=== PATIENT | female | born 1940 | race Two or more races ===

== ENCOUNTER 2016-06-20 10:04 | Emergency (ER) | payer MEDICARE, MEDICAID ==
[~2016-06-20] VITALS: Ht 157.5 cm; Wt 73.0 kg
[~2016-06-20 10:04] MED LIST: BENAZEPRIL PO; CHOL20004 PO; FOLI-43 PO; GLIPIZIDE PO; MEMA10TA11 PO; METFORMIN PO; OMEPRAZOLE PO; PANT40TA4 PO; PROP10TA10 PO; SIME80TA15 PO
[2016-06-20 12:48] LABS: BASOPHILS % 0.3 % (0.0-2.0); EOSINOPHILS % 0.2 % (0.0-5.0); HEMATOCRIT. 27.9 % (36.0-48.0); HEMOGLOBIN. 9.4 g/dL (12.0-16.0); LYMPHOCYTES % 24.5 % (20.0-50.0); MEAN CORPUSCULAR HEMOGLOBIN 32.5 pg (28.0-32.0); MEAN CORPUSCULAR HGB CONC 33.9 g/dL (31.0-37.0); MONOCYTES % 5.7 % (2.0-8.0); NEUTROPHILS % 69.3 % (40.0-76.0); PLATELET 125 x1000/uL (130-400); RED CELL DISTRIBUTION WIDTH 14.5 % (11.6-14.6); WHITE BLOOD COUNT 6.2 x1000/uL (4.5-11.0)
[2016-06-20 12:59] LABS: CLARITY URINE CLEAR (CLEAR); COLOR URINE YELLOW (YELLOW); GLUCOSE URINE NEGATIVE (NEGATIVE); KETONES URINE NEGATIVE (NEGATIVE); LEUKOCYTE ESTERASE URINE NEGATIVE (NEGATIVE); NITRITE URINE NEGATIVE (NEGATIVE); OCCULT BLOOD URINE TRACE (NEGATIVE); PH URINE 5.5 (4.5-8.0); PROTEIN URINE NEGATIVE (NEGATIVE); SPECIFIC GRAVITY URINE 1.009 (1.005-1.030); UROBILINOGEN URINE 0.2 E.U./dL (0.2-1.0)
[2016-06-20 12:59] LABS: ALANINE AMINOTRANSFERASE 31 IU/L (13-61); ALBUMIN 2.6 g/dL (3.4-5.0); ANION GAP 13; CALCIUM 8.8 mg/dL (8.5-10.1); CARBON DIOXIDE 23 mEq/L (21-32); CHLORIDE 114 mEq/L (98-107); ETHANOL BLOOD < 10 mg/dL; INDEX HEMOLYSI 1 (1-3); INDEX ICTERIC 1 (1-4); INDEX LIPEMIC 1 (1-3); UREA NITROGEN BLOOD 15 mg/dL (7-21)
[2016-06-20 13:02] LABS: eGFR > 60 mL/min (>60)
[2016-06-20 13:06] LABS: MUCUS URINE 2+ /lpf (< = 2+); SQUAMOUS EPITHELIAL CELL URINE 1+ /lpf (RARE/1+)
[2016-06-20 13:07] LABS: BACTERIA URINE 2+
[2016-06-20 13:22] LABS: *AMPHETAMINES SCREEN URINE NEGATIVE (NEGATIVE); *BARBITURATES SCREEN URINE NEGATIVE (NEGATIVE); *BENZODIAZEPINES SCREEN URINE NEGATIVE (NEGATIVE); *COCAINE SCREEN URINE NEGATIVE (NEGATIVE); CANNABINOID URINE SCREEN NEGATIVE (NEGATIVE); ECSTASY MDMA SCREEN URINE NEGATIVE (NEGATIVE); METHADONE URINE SCREEN NEGATIVE (NEGATIVE); OPIATES URINE SCREEN NEGATIVE (NEGATIVE); PHENCYCLIDINE URINE SCREEN NEGATIVE (NEGATIVE)
[2016-06-20 17:05] VITALS: BP 143/70
== END 2016-06-20 17:37 | disposition home or self-care (01) ==
LOC: ER 10:22
DX: E11.649 Type 2 diabetes mellitus with hypoglycemia without coma (principal); E86.0 Dehydration; E87.0 Hyperosmolality and hypernatremia; I10 Essential (primary) hypertension; D69.6 Thrombocytopenia, unspecified; D64.9 Anemia, unspecified; Z91.14 Patient's other noncompliance with medication regimen; Z79.84 Long term (current) use of oral hypoglycemic drugs; E78.00 Pure hypercholesterolemia, unspecified; Z87.440 Personal history of urinary (tract) infections
CPT/HCPCS: 36415; 70450; 80053; 80305; 81001; 82962; 83036; 85025; 93005; 99285; G0482

== ENCOUNTER 2017-06-07 18:20 | Emergency (ER) | payer OTHER, MEDICAID ==
[~2017-06-07] VITALS: Ht 154.9 cm; Wt 50.0 kg
[~2017-06-07 18:20] MED LIST changes: -MEMA10TA11 PO; +MEMA10TA2 PO
[2017-06-07] MEDS ORDERED: KETOROLAC 30MG/ML VIAL IV STA (19:17)
[2017-06-07] MEDS ORDERED: MORPHINE SULFATE 4 MG/ML CPJ (NOT FOR IM USE) IV STA (19:17)
[2017-06-07] MEDS ORDERED: ONDANSETRON HCL 4MG/2ML VIAL IV ONE (19:30)
[2017-06-07 19:50] LABS: BASOPHILS % 0.3 % (0.0-2.0); EOSINOPHILS % 0.9 % (0.0-5.0); HEMATOCRIT. 35.5 % (36.0-48.0); HEMOGLOBIN. 12.3 g/dL (12.0-16.0); LYMPHOCYTES % 12.1 % (20.0-50.0); MEAN CORPUSCULAR HEMOGLOBIN 34.1 pg (28.0-32.0); MEAN CORPUSCULAR VOLUME 98.4 fL (81.0-99.0); MEAN PLATELET VOLUME 10.3 fl (7.4-10.4); MONOCYTES % 6.4 % (2.0-8.0); NEUTROPHILS % 80.3 % (40.0-76.0); PLATELET 121 x1000/uL (130-400); RED CELL DISTRIBUTION WIDTH 14.7 % (11.6-14.6)
[2017-06-07 19:54] LABS: CHLORIDE 110 mEq/L (98-107)
[2017-06-07 19:55] LABS: INR 1.1; PROTHROMBIN TIME 10.9 sec (9.4-11.6)
[2017-06-07 22:27] VITALS: BP 134/88
== END 2017-06-07 22:29 | disposition home or self-care (01) ==
LOC: ER 18:44
DX: R10.13 Epigastric pain (principal); R19.7 Diarrhea, unspecified; R53.1 Weakness; I10 Essential (primary) hypertension; E78.00 Pure hypercholesterolemia, unspecified; Z79.84 Long term (current) use of oral hypoglycemic drugs
CPT/HCPCS: 36415; 74176; 80053; 83690; 85025; 85610; 96374; 96375; 99285; J1885; J2405

== ENCOUNTER 2017-06-23 22:33 | Emergency (ER) | payer OTHER, MEDICAID ==
[~2017-06-23] VITALS: Ht 162.6 cm; Wt 75.0 kg
[2017-06-24] MEDS ORDERED: DIAZEPAM 5 MG/ML 2ML CPJ IV ONE (00:15)
[2017-06-24] MEDS ORDERED: ASPIRIN 325MG EC TABLET PO ONE (00:15)
[2017-06-24] MEDS ORDERED: LIDOCAINE 5% PATCH TOP SCH (00:15)
[2017-06-24] MEDS ORDERED: KETOROLAC 30MG/ML VIAL IV ONE (00:15)
[2017-06-24 00:28] LABS: BASOPHILS % 0.9 % (0.0-2.0); EOSINOPHILS % 2.3 % (0.0-5.0); HEMATOCRIT. 32.6 % (36.0-48.0); HEMOGLOBIN. 11.4 g/dL (12.0-16.0); LYMPHOCYTES % 17.4 % (20.0-50.0); MEAN CORPUSCULAR HEMOGLOBIN 34.2 pg (28.0-32.0); MEAN CORPUSCULAR VOLUME 98.3 fL (81.0-99.0); MEAN PLATELET VOLUME 9.7 fl (7.4-10.4); MONOCYTES % 8.6 % (2.0-8.0); NEUTROPHILS % 70.8 % (40.0-76.0); PLATELET 149 x1000/uL (130-400); RED BLOOD CELL COUNT 3.32 mill/uL (4.2-5.4); RED CELL DISTRIBUTION WIDTH 14.3 % (11.6-14.6)
[2017-06-24 00:33] LABS: CHLORIDE 110 mEq/L (98-107)
[2017-06-24 00:35] LABS: INR 1.1; PARTIAL THROMBOPLASTIN TIME 26.8 sec (23.4-31.0)
[2017-06-24] MEDS ORDERED: DIAZEPAM 5 MG TABLET PO ONE (00:45)
[2017-06-24 05:20] VITALS: BP 165/77
== END 2017-06-24 05:20 | disposition home or self-care (01) ==
LOC: ER 22:33 → CANBEDREQ 06-24 03:39 → ER 06-24 05:20
DX: M62.838 Other muscle spasm (principal); K74.60 Unspecified cirrhosis of liver; E11.9 Type 2 diabetes mellitus without complications; Z79.84 Long term (current) use of oral hypoglycemic drugs
CPT/HCPCS: 36415; 71045; 80053; 83880; 84484; 85025; 85610; 85730; 93005; 96374; 99285; J1885

== ENCOUNTER 2017-08-24 08:26 | Emergency (ER) | payer OTHER ==
[~2017-08-24] VITALS: Ht 167.6 cm; Wt 77.0 kg
[2017-08-24] MEDS ORDERED: KETOROLAC 30MG/ML VIAL IM ONE (09:30)
[2017-08-24] MEDS ORDERED: LIDOCAINE HCL 1% 20ML VIAL (Pyxis) INJ INFIL ONE (09:30)
[2017-08-24] MEDS ORDERED: LIDOCAINE HCL/PF 1% 10 MG/ML 5ML VIAL IJ NR (10:16)
[2017-08-24 12:35] VITALS: BP 160/72
== END 2017-08-24 12:48 | disposition home or self-care (01) ==
LOC: ER 09:14
DX: S16.1XXA Strain of muscle, fascia and tendon at neck level, initial encounter (principal); R19.7 Diarrhea, unspecified; I10 Essential (primary) hypertension; E11.9 Type 2 diabetes mellitus without complications; R94.31 Abnormal electrocardiogram [ECG] [EKG]; Z79.84 Long term (current) use of oral hypoglycemic drugs; X58.XXXA Exposure to other specified factors, initial encounter; Y92.018 Other place in single-family (private) house as the place of occurrence of the external cause
CPT/HCPCS: 82962; 93005; 96372; 99283; J1885; J3490

== ENCOUNTER 2018-08-01 11:20 | Emergency (ER) | payer OTHER, MEDICAID ==
[~2018-08-01] VITALS: Ht 160 cm; Wt 82.0 kg
[2018-08-01 12:41] LABS: BASOPHILS % 0.5 % (0.0-2.0); EOSINOPHILS % 0.5 % (0.0-5.0); HEMATOCRIT. 34.4 % (36.0-48.0); HEMOGLOBIN. 11.8 g/dL (12.0-16.0); LYMPHOCYTES % 16.5 % (20.0-50.0); MEAN CORPUSCULAR HEMOGLOBIN 35.5 pg (28.0-32.0); MEAN CORPUSCULAR VOLUME 103.6 fL (81.0-99.0); MEAN PLATELET VOLUME 9.8 fl (7.4-10.4); NEUTROPHILS % 75.5 % (40.0-76.0); PLATELET 144 x1000/uL (130-400); RED BLOOD CELL COUNT 3.32 mill/uL (4.2-5.4)
[2018-08-01 12:55] LABS: INR 1.1; PROTHROMBIN TIME 11.5 sec (9.6-11.0)
[2018-08-01 12:56] LABS: CHLORIDE 112 mEq/L (98-107)
[2018-08-01 13:47] LABS: CLARITY URINE CLOUDY (CLEAR); COLOR URINE DARK YELLOW (YELLOW); KETONES URINE TRACE (NEGATIVE); LEUKOCYTE ESTERASE URINE 1+ (NEGATIVE); NITRITE URINE POSITIVE (NEGATIVE); OCCULT BLOOD URINE 3+ (NEGATIVE); PROTEIN URINE 1+ (NEGATIVE); SPECIFIC GRAVITY URINE 1.021 (1.005-1.030)
[2018-08-01] MEDS ORDERED: FUROSEMIDE 40MG/4ML VIAL IVP ONE (16:15)
[2018-08-01] MEDS ORDERED: DEXTROSE 50% WATER 50ML SYRINGE IV PRN (17:15)
[2018-08-01 17:35] LABS: BG BASE EXCESS -3.9 mmol/L (-2.0-2.0); BG CARBOXYHEMOGLOBIN 0.1 % (0.5-1.5); BG DEOXYHEMOGLOBIN 4.8 % (0.0-5.0); BG FRACTION INSPIRED OXYGEN 21; BG HCO3 ACT 18.9 mmol/L (22.0-26.0); BG METHEMOGLOBIN 0.2 % (0.0-1.5); BG OXYGEN SATURATION 95.2 % (92.0-98.5); BG OXYHEMOGLOBIN 94.9 % (94.0-97.0); BG PH 7.448 (7.350-7.450); BG PO2 77.1 mmHg (75.0-100.0); BG SAMPLE SITE RIGHT BRACHIAL; BG TOTAL HEMOGLOBIN 12.1 g/dL (12.0-18.0); BG VENT MODE ROOM AIR
[2018-08-01] MEDS ORDERED: LEVOFLOXACIN 500MG PREMIX 100 ML IV NR (17:49)
[2018-08-01] MEDS ORDERED: INSULIN LISPRO 100 UNITS/ML SUBCUT SCH (18:20)
[2018-08-01] MEDS ORDERED: IPRATROPIUM/ALBUTEROL 0.5-3(2.5)MG/3ML NEB HHN SCH (20:00)
[2018-08-01 20:13] VITALS: BP 124/61
[2018-08-01] MEDS ORDERED: BLOOD SUGAR DIAGNOSTIC STRIP TEST SCH (21:00)
== END 2018-08-01 20:29 | disposition short-term general hospital (02) ==
LOC: ER 11:20 → EDBEDREQ 14:56 → CANBEDREQ 19:21 → ER 20:29
DX: K74.60 Unspecified cirrhosis of liver (principal); R18.8 Other ascites; J90 Pleural effusion, not elsewhere classified; J18.9 Pneumonia, unspecified organism; R06.03 Acute respiratory distress; I81 Portal vein thrombosis; E11.9 Type 2 diabetes mellitus without complications; I10 Essential (primary) hypertension; K80.20 Calculus of gallbladder without cholecystitis without obstruction; D64.9 Anemia, unspecified; G47.00 Insomnia, unspecified; F41.9 Anxiety disorder, unspecified; Z91.19 Patient's noncompliance with other medical treatment and regimen; Z79.84 Long term (current) use of oral hypoglycemic drugs; Z79.899 Other long term (current) drug therapy
CPT/HCPCS: 36415; 36600; 71045; 74018; 76700; 80053; 81003; 82375; 82805; 82962; 83036; 83690; 83880; 84484; 85025; 85610; 85730; 87077; 87086; 87186; 93005; 96365; 96375; 99285; J1940; J1956

== ENCOUNTER 2018-09-28 16:20 | Inpatient (IN) | payer MEDICARE, MEDICAID ==
[~2018-09-28] VITALS: Ht 154.9 cm; Wt 82.1 kg
[2018-09-28] MEDS ORDERED: KETOROLAC 30MG/ML VIAL IV STA (18:54)
[2018-09-28 20:40] LABS: CHLORIDE 112 mEq/L (98-107); INR 1.2; PROTHROMBIN TIME 12.2 sec (9.6-11.0)
[2018-09-28 20:46] LABS: BASOPHILS % 0.5 % (0.0-2.0); EOSINOPHILS % 0.8 % (0.0-5.0); HEMATOCRIT. 36.5 % (36.0-48.0); HEMOGLOBIN. 12.3 g/dL (12.0-16.0); LYMPHOCYTES % 17.5 % (20.0-50.0); MEAN CORPUSCULAR HEMOGLOBIN 34.6 pg (28.0-32.0); MEAN CORPUSCULAR VOLUME 102.5 fL (81.0-99.0); MONOCYTES % 7.8 % (2.0-8.0); NEUTROPHILS % 73.4 % (40.0-76.0); PLATELET 135 x1000/uL (130-400); RED BLOOD CELL COUNT 3.56 mill/uL (4.2-5.4); RED CELL DISTRIBUTION WIDTH 15.3 % (11.6-14.6)
[2018-09-28] MEDS ORDERED: SODIUM CHLORIDE 0.9% 1,000 ML IV ONE (21:41)
[2018-09-29] VITALS (7 sets, daily range): BP systolic 103–165; BP diastolic 58–63
[2018-09-29] MEDS ORDERED: FURO40TA5 MT (01:57)
[2018-09-29] MEDS ORDERED: GLIP10TA10 MT (01:58)
[2018-09-29] MEDS ORDERED: OMEP40CA34 MT (01:58)
[2018-09-29] MEDS ORDERED: PROPRANOLOL HCL 10MG TABLET PO SCH (06:00)
[2018-09-29] MEDS: OMEPRAZOLE 20MG CAPSULE EXTENDED RELEASE PO SCH (06:20)
[2018-09-29] MEDS: BLOOD SUGAR DIAGNOSTIC STRIP TEST SCH ×4 (06:34→20:28)
[2018-09-29] MEDS: INSULIN LISPRO 100 UNITS/ML SUBCUT SCH ×4 (06:34→20:28)
[2018-09-29] MEDS ORDERED: MEDICATION NOT ON FORMULARY EA (Folic Acid 1 TAB) PO SCH (09:00)
[2018-09-29] MEDS ORDERED: PROPRANOLOL HCL PO SCH (09:00)
[2018-09-29] MEDS ORDERED: MEDICATION NOT ON FORMULARY EA (Omeprazole 1 CAP) MT SCH (09:00)
[2018-09-29] MEDS ORDERED: MEDICATION NOT ON FORMULARY EA (Furosemide 1 TAB) MT SCH (09:00)
[2018-09-29] MEDS: PROPRANOLOL HCL 10MG TABLET PO SCH ×2 (09:09→20:28)
[2018-09-29] MEDS: FUROSEMIDE 40MG TABLET PO SCH (09:09)
[2018-09-29] MEDS: GLIPIZIDE 10MG TABLET PO SCH ×2 (09:10→17:43)
[2018-09-29] MEDS: FOLIC ACID 1MG TABLET PO SCH (09:10)
[2018-09-29] MEDS ORDERED: LIDOCAINE HCL 1% 20ML VIAL (Pyxis) INJ ONE (09:25)
[2018-09-29] MEDS ORDERED: SODIUM BICARBONATE 4% (2.4MEQ) 5ML VIAL IV ONE (09:26)
[2018-09-29] MEDS ORDERED: ONDANSETRON HCL 4MG/2ML INJ IV PRN (16:15)
[2018-09-29] MEDS ORDERED: DIPHENHYDRAMINE 50MG/ML VIAL IV PRN (16:15)
[2018-09-29] MEDS ORDERED: MORPHINE SULFATE 2 MG/ML CPJ (NOT FOR IM USE) IV PRN (16:15)
[2018-09-29] MEDS ORDERED: LORAZEPAM 2MG/ML CPJ IV PRN (16:15)
[2018-09-29] MEDS ORDERED: HYDRALAZINE 20MG/ML VIAL IV PRN (16:15)
[2018-09-29] MEDS: METRONIDAZOLE 500MG TABLET PO SCH (17:43)
[2018-09-29] MEDS: SODIUM CHLORIDE 0.45% 1,000 ML IV SCH (17:43)
[2018-09-29 20:21] LABS: BASOPHILS % 0.3 % (0.0-2.0); EOSINOPHILS % 0.5 % (0.0-5.0); HEMOGLOBIN. 10.5 g/dL (12.0-16.0); LYMPHOCYTES % 15.1 % (20.0-50.0); MEAN CORPUSCULAR HEMOGLOBIN 35.2 pg (28.0-32.0); MEAN CORPUSCULAR VOLUME 104.5 fL (81.0-99.0); MEAN PLATELET VOLUME 10.4 fl (7.4-10.4); MONOCYTES % 8.3 % (2.0-8.0); NEUTROPHILS % 75.8 % (40.0-76.0); PLATELET 127 x1000/uL (130-400); RED BLOOD CELL COUNT 2.97 mill/uL (4.2-5.4); RED CELL DISTRIBUTION WIDTH 15.3 % (11.6-14.6)
[2018-09-29] MEDS: TRAMADOL 50MG TABLET PO PRN (20:28)
[2018-09-29 20:37] LABS: CHLORIDE 111 mEq/L (98-107)
[2018-09-29 20:45] LABS: T4 FREE 1.6 ng/dL (0.76-1.46)
[2018-09-29 21:16] LABS: HEPATITIS B SURFACE ANTIGEN NEGATIVE
[2018-09-29 21:45] LABS: HEPATITIS A AB IGM NEGATIVE (NEGATIVE)
[2018-09-30] VITALS: BP 99/59
[2018-09-30] MEDS: METRONIDAZOLE 500MG TABLET PO SCH ×4 (00:55→16:18)
[2018-09-30] MEDS: SIMETHICONE 80MG TABLET CHEW PO PRN ×2 (00:55→13:29)
[2018-09-30 04:00] VITALS: BP 104/48
[2018-09-30] MEDS ORDERED: SODIUM POLYSTYRENE SULFONATE 15 G/60 ML BOT PO NR (06:30)
[2018-09-30] MEDS: OMEPRAZOLE 20MG CAPSULE EXTENDED RELEASE PO SCH (06:37)
[2018-09-30] MEDS: BLOOD SUGAR DIAGNOSTIC STRIP TEST SCH ×5 (06:51→20:00)
[2018-09-30] MEDS: INSULIN LISPRO 100 UNITS/ML SUBCUT SCH ×5 (06:52→20:00)
[2018-09-30 08:00] VITALS: BP 90/42
[2018-09-30] MEDS: PROPRANOLOL HCL 10MG TABLET PO SCH ×2 (08:27→22:11)
[2018-09-30] MEDS: FOLIC ACID 1MG TABLET PO SCH ×2 (08:35→08:53)
[2018-09-30] MEDS: FUROSEMIDE 40MG TABLET PO SCH ×2 (08:35→08:53)
[2018-09-30 12:00] VITALS: BP 101/43
[2018-09-30] MEDS: SODIUM CHLORIDE 0.45% 1,000 ML IV SCH (13:30)
[2018-09-30] MEDS: LACTULOSE 20G/30ML UDC PO SCH ×2 (13:37→22:10)
[2018-09-30] MEDS ORDERED: DEXT 5%/0.45% NACL 1000ML 1,000 ML IV SCH (14:00)
[2018-09-30 16:00] VITALS: BP 112/43
[2018-09-30 16:37] LABS: HEMATOCRIT 33.2 % (36.0-48.0); MEAN CORPUSCULAR HEMOGLOBIN 35.3 pg (28.0-32.0); MEAN CORPUSCULAR VOLUME 106.2 fL (81.0-99.0); PLATELET 113 x1000/uL (130-400); RED BLOOD CELL COUNT 3.13 mill/uL (4.2-5.4); RED CELL DISTRIBUTION WIDTH 15.9 % (11.6-14.6)
[2018-09-30] MEDS ORDERED: LORAZEPAM 2MG/ML CPJ IV PRN (16:41)
[2018-09-30 16:47] LABS: CHLORIDE 109 mEq/L (98-107)
[2018-09-30 20:00] VITALS: BP 119/55
[2018-09-30] MEDS: RIFAXIMIN 550 MG TABLET PO SCH (22:10)
[2018-10-01] VITALS: BP 108/54
[2018-10-01] MEDS: METRONIDAZOLE 500MG TABLET PO SCH ×3 (01:00→17:33)
[2018-10-01 04:00] VITALS: BP 105/51
[2018-10-01] MEDS: BLOOD SUGAR DIAGNOSTIC STRIP TEST SCH ×6 (04:00→20:00)
[2018-10-01] MEDS: INSULIN LISPRO 100 UNITS/ML SUBCUT SCH ×6 (04:00→20:00)
[2018-10-01] MEDS: OMEPRAZOLE 20MG CAPSULE EXTENDED RELEASE PO SCH (06:13)
[2018-10-01] MEDS: DEXTROSE 50% WATER 50ML SYRINGE IV PRN (06:23)
[2018-10-01 07:42] LABS: HEMATOCRIT 29.2 % (36.0-48.0); HEMOGLOBIN 10.1 g/dL (12.0-16.0); MEAN CORPUSCULAR HEMOGLOBIN 35.2 pg (28.0-32.0); MEAN CORPUSCULAR VOLUME 102.4 fL (81.0-99.0); PLATELET 121 x1000/uL (130-400); RED BLOOD CELL COUNT 2.85 mill/uL (4.2-5.4)
[2018-10-01 08:00] VITALS: BP 117/52
[2018-10-01 08:11] LABS: CHLORIDE 110 mEq/L (98-107)
[2018-10-01] MEDS: LACTULOSE 20G/30ML UDC PO SCH ×2 (09:00→21:59)
[2018-10-01] MEDS: FUROSEMIDE 40MG TABLET PO SCH (09:22)
[2018-10-01] MEDS: RIFAXIMIN 550 MG TABLET PO SCH ×2 (09:22→21:58)
[2018-10-01] MEDS: PROPRANOLOL HCL 10MG TABLET PO SCH ×2 (09:22→21:58)
[2018-10-01] MEDS: FOLIC ACID 1MG TABLET PO SCH (09:22)
[2018-10-01 12:00] VITALS: BP 126/76
[2018-10-01 16:00] VITALS: BP 110/68
[2018-10-01 20:00] VITALS: BP 123/46
[2018-10-01] MEDS: TRAMADOL 50MG TABLET PO PRN (21:58)
[2018-10-02 00:22] VITALS: BP 113/40
[2018-10-02 04:00] VITALS: BP 98/35
[2018-10-02] MEDS: INSULIN LISPRO 100 UNITS/ML SUBCUT SCH ×5 (04:00→16:00)
[2018-10-02 04:10] VITALS: BP 122/62
[2018-10-02] MEDS: DEXTROSE 50% WATER 50ML SYRINGE IV PRN (04:23)
[2018-10-02] MEDS: BLOOD SUGAR DIAGNOSTIC STRIP TEST SCH ×5 (04:24→16:33)
[2018-10-02] MEDS: OMEPRAZOLE 20MG CAPSULE EXTENDED RELEASE PO SCH (06:15)
[2018-10-02 08:00] VITALS: BP 104/35
[2018-10-02] MEDS: PROPRANOLOL HCL 10MG TABLET PO SCH (09:00)
[2018-10-02] MEDS: FOLIC ACID 1MG TABLET PO SCH (09:42)
[2018-10-02] MEDS: METRONIDAZOLE 500MG TABLET PO SCH ×3 (09:42→16:22)
[2018-10-02] MEDS: RIFAXIMIN 550 MG TABLET PO SCH (09:42)
[2018-10-02] MEDS: FUROSEMIDE 40MG TABLET PO SCH (09:42)
[2018-10-02] MEDS: LACTULOSE 20G/30ML UDC PO SCH (09:42)
[2018-10-02 12:00] VITALS: BP 109/38
[2018-10-02 16:00] VITALS: BP 105/40
[2018-10-02 18:35] LABS: HEMATOCRIT 29.2 % (36.0-48.0); HEMOGLOBIN 9.9 g/dL (12.0-16.0); MEAN CORPUSCULAR VOLUME 103.1 fL (81.0-99.0); PLATELET 113 x1000/uL (130-400); RED BLOOD CELL COUNT 2.83 mill/uL (4.2-5.4); RED CELL DISTRIBUTION WIDTH 15.4 % (11.6-14.6)
[2018-10-02 18:56] LABS: CHLORIDE 108 mEq/L (98-107)
== END 2018-10-02 20:43 | disposition home or self-care (01) | DRG 433 ==
LOC: ER 16:20 → 5WST 21:59 → ENRESERV 09-29 00:07
PROVIDERS: ADMIT Internal Medicine; ATTEND Internal Medicine
PROC: 0W9G3ZZ Drainage of Peritoneal Cavity, Percutaneous Approach (ICD-10-PCS; 2018-09-29)
PROC: 0W9G3ZZ Drainage of Peritoneal Cavity, Percutaneous Approach (ICD-10-PCS; principal; 2018-10-01)
DX: K74.60 Unspecified cirrhosis of liver (principal); R18.8 Other ascites; N17.9 Acute kidney failure, unspecified; D68.59 Other primary thrombophilia; I12.9 Hypertensive chronic kidney disease with stage 1 through stage 4 chronic kidney disease, or unspecified chronic kidney disease; E86.0 Dehydration; E87.5 Hyperkalemia; E11.649 Type 2 diabetes mellitus with hypoglycemia without coma; E11.22 Type 2 diabetes mellitus with diabetic chronic kidney disease; N18.9 Chronic kidney disease, unspecified; R19.7 Diarrhea, unspecified; K80.20 Calculus of gallbladder without cholecystitis without obstruction; Z79.84 Long term (current) use of oral hypoglycemic drugs; Z79.899 Other long term (current) drug therapy
CPT/HCPCS: 36415; 49083; 74176; 76700; 80048; 80061; 82140; 82270; 82962; 83036; 84439; 84443; 85027; 86705; 86709; 86803; 87015; 87045; 87340; 87427; 87449; 87493; 88108; 88312; 89055; 93970; 96374; 99285; J1815; J1885; J3490; J7030